=== PATIENT | female | born 1945 | race Caucasian/White ===

== ENCOUNTER 2017-01-25 06:58 | Emergency (ER) | payer MEDICARE ==
[2017-01-25] MEDS ORDERED: Ketorolac Tromethamine 30 MG/ML VIAL ONE (07:13)
[2017-01-25 07:32] LABS: #Lymphocytes 0.8 thou/uL (1.20-3.40); #Monocytes 0.3 thou/uL (0.11-0.59); #Neutrophils 3.6 thou/uL (1.40-6.50); %Basophils 0.5 % (0.0-1.0); %Eosinophils 0.5 % (0.0-10.0); %Monocytes 5.2 % (0.0-10.0); Hematocrit 38.8 % (36.0-47.0); Mean Platelet Volume 6.2 fL (7.4-10.4); Red Blood Cell (RBC) Count 3.97 mill/uL (4.20-5.40); White Blood Cell (WBC) Count 4.7 thou/uL (4.8-10.8)
[2017-01-25 07:50] LABS: ALT (SGPT) 24 U/L (8-55); AST (SGOT) 25 U/L (5-34); Alkaline Phosphatase 69 U/L (40-150); Anion Gap 11 mmol/L (10-20); BUN (Urea Nitrogen) 8 mg/dL (9.8-20.1); Bilirubin, Total 0.2 mg/dL (0.2-1.2); Calc. Creatinine Clearance 0 mL/min (70-130); Calcium 8.7 mg/dL (7.8-10.44); Carbon Dioxide 23 mmol/L (23-31); Chloride 100 mmol/L (98-107); Estimated GFR-MDRD 74; Globulin 2.8 g/dL (2.4-3.5); Protein, Total 6.4 g/dL (6.0-8.3)
[2017-01-25 08:34] LABS: Bilirubin Negative (Negative); Blood, Urine Trace (Negative); Glucose, Urine (Dipstick) Negative (Negative); Ketone, Urine Negative (Negative); Nitrite Negative (Negative); Protein, Urine (Dipstick) Negative (Neg-Trace); Urobilinogen 0.2 mg/dL (0.2-1.0)
[2017-01-25 08:36] LABS: Bacteria/HPF None Seen HPF (None Seen); Hyaline Casts/LPF 0-3 HYALINE CAST LPF (0-3 Hyaline); Squamous Epithelial 0-3 HPF (0-3); WBC/HPF 0-3 HPF (0-3)
--- NOTE | 2017-01-25 08:58 | RAD ---
PA AND LATERAL CHEST XRAY: DATE: 01/25/17. HISTORY: Malaise, fever, body aches, nonproductive cough and fever. COMPARISON: 02/21/13. FINDINGS: Cardiac silhouette and pulmonary vasculature are within normal limits. The lungs remain clear. Ther e is mild eventration of the anterior right hemidiaphragm. There has been no interval change from th e prior study. IMPRESSION: No acute cardiopulmonary process. POS: [facility]VIZ
== END 2017-01-25 08:55 | disposition home or self-care (01) ==
LOC: ERS 06:58
DX: J11.1 Influenza due to unidentified influenza virus with other respiratory manifestations (principal); I10 Essential (primary) hypertension; Z79.899 Other long term (current) drug therapy
CPT/HCPCS: 71020; 80053; 81003; 81015; 85025; 94640; 96361; 96374; J1885

== ENCOUNTER 2018-02-25 09:32 | Emergency (ER) | payer MEDICARE | END 2018-02-25 11:05 | disposition home or self-care (01) | LOC: ERS 09:32 | DX: M54.5 Low back pain (principal); E78.5 Hyperlipidemia, unspecified; F32.9 Major depressive disorder, single episode, unspecified; Z79.899 Other long term (current) drug therapy | CPT/HCPCS: 99283 ==

== ENCOUNTER 2018-04-06 15:18 | Outpatient (CLI) | payer MEDICARE | END 2018-04-06 15:19 | disposition home or self-care (01) | LOC: BICMAMMO 15:18 | PROVIDERS: ATTEND Obstetrics & Gynecology | DX: Z12.31 Encounter for screening mammogram for malignant neoplasm of breast (principal); R92.1 Mammographic calcification found on diagnostic imaging of breast; Z80.3 Family history of malignant neoplasm of breast | CPT/HCPCS: 77063; 77067 ==

== ENCOUNTER 2019-04-20 08:42 | Outpatient (CLI) | payer MEDICARE ==
--- NOTE | 2019-04-20 12:20 | NM ---
Radionucleotide stress and rest myocardial perfusion scan with CT attenuation correction and SPECT im aging Left ventricular wall motion evaluation and ejection fraction HISTORY: Chest pain. FINDINGS: Adenosine protocol. There is homogeneous uptake of radiotracer throughout the left ventricu lar myocardium. No focal perfusion defect or reversibility. QGS analysis of gated SPECT images shows no focal wall motion abnormalities. Ejection fraction calcul ated at 77%. IMPRESSION: Normal exam.
[2019-04-20] MEDS ORDERED: ADENOSINE 60 MG/20 ML VIAL ONE (15:25)
== END 2019-04-20 08:43 | disposition home or self-care (01) ==
LOC: NM 08:42
PROVIDERS: ATTEND Internal Medicine
DX: R07.9 Chest pain, unspecified (principal)
CPT/HCPCS: 78452; 93017; A9500; J0153

== ENCOUNTER 2019-05-10 11:47 | Emergency (ER) | payer MEDICARE | END 2019-05-10 14:30 | disposition home or self-care (01) | LOC: ERS 11:47 | DX: I10 Essential (primary) hypertension (principal); E78.5 Hyperlipidemia, unspecified; F32.9 Major depressive disorder, single episode, unspecified; Z87.891 Personal history of nicotine dependence; Z79.899 Other long term (current) drug therapy | CPT/HCPCS: 99283 ==

== ENCOUNTER 2019-07-20 12:14 | Emergency (ER) | payer MEDICARE ==
[2019-07-20] MEDS ORDERED: Lidocaine 4% Cream 5 GM TUBE w/ Tegaderm ONE (13:09)
== END 2019-07-20 15:22 | disposition home or self-care (01) ==
LOC: ERS 12:14
DX: N39.0 Urinary tract infection, site not specified (principal); R33.9 Retention of urine, unspecified; E78.5 Hyperlipidemia, unspecified; F32.9 Major depressive disorder, single episode, unspecified; Z87.891 Personal history of nicotine dependence; Z79.899 Other long term (current) drug therapy
CPT/HCPCS: 51702; 51798

== ENCOUNTER 2019-07-30 06:27 | Outpatient (CLI) | payer MEDICARE, OTHER ==
[2019-07-30 11:54] LABS: Hemoglobin 13.8 g/dL (12.0-16.0); Mean Corpuscular HGB CONC 33.7 g/dL (32.0-36.0); Mean Corpuscular Hemoglobin 33.1 pg (27.0-31.0); Mean Corpuscular Volume 98.2 fL (78.0-98.0); Mean Platelet Volume 6.7 fL (7.4-10.4); Platelet Count 357 thou/uL (130-400); RBC Distribution Width 11.3 % (11.5-14.5); Red Blood Cell (RBC) Count 4.18 mill/uL (4.20-5.40); White Blood Cell (WBC) Count 6.9 thou/uL (4.8-10.8)
[2019-07-30 12:12] LABS: Anion Gap 11 mmol/L (10-20); BUN (Urea Nitrogen) 20 mg/dL (9.8-20.1); Calc. Creatinine Clearance 0 mL/min (70-130); Calcium 9.3 mg/dL (7.8-10.44); Carbon Dioxide 27 mmol/L (23-31); Chloride 99 mmol/L (98-107); Estimated GFR-MDRD 73; Glucose 86 mg/dL (83-110); Potassium 4.3 mmol/L (3.5-5.1); Sodium 133 mmol/L (136-145)
[2019-07-30 17:52] LABS: SARS-CoV-2 MS2 Positive; SARS-CoV-2 N Gene Negative; SARS-CoV-2 S Gene Negative; SARS-CoV-2 orf1ab Negative
== END 2019-07-30 06:28 | disposition home or self-care (01) ==
LOC: LABBT 06:27
PROVIDERS: ATTEND Urology
DX: Z01.818 Encounter for other preprocedural examination (principal); Z11.59 Encounter for screening for other viral diseases; N35.92 Unspecified urethral stricture, female
CPT/HCPCS: 80048; 85027; 93005; U0003; 87635; 93010

== ENCOUNTER 2019-08-03 | Day surgery (SDC) | payer MEDICARE | END 2019-08-03 14:41 | disposition home or self-care (01) | PROC: 0T7D8ZZ Dilation of Urethra, Via Natural or Artificial Opening Endoscopic (ICD-10-PCS; principal; 2019-08-03) | DX: N35.92 Unspecified urethral stricture, female (principal); N32.89 Other specified disorders of bladder; N32.3 Diverticulum of bladder; I10 Essential (primary) hypertension; E78.00 Pure hypercholesterolemia, unspecified; K21.9 Gastro-esophageal reflux disease without esophagitis; F41.9 Anxiety disorder, unspecified; Z79.899 Other long term (current) drug therapy ==

== ENCOUNTER 2020-04-25 07:32 | Day surgery (SDC) | payer MEDICARE ==
[2020-04-24 09:59] VITALS: BMI 25.7
[2020-04-25] MEDS ORDERED: Bupivacaine 0.25% HCL 30 ML VIAL ONE (08:49)
[2020-04-25] MEDS ORDERED: Fentanyl 100 MCG/2 ML VIAL ONE (08:57)
[2020-04-25] MEDS ORDERED: Midazolam HCl 2 mg/2 ml Vial ONE (08:57)
[2020-04-25] MEDS ORDERED: PROPOFOL 200 MG/20 ML VIAL ONE (09:56)
[2020-04-25] MEDS ORDERED: Lidocaine 1% PF 5 ML VIAL ONE (09:56)
--- NOTE | 2020-04-25 11:03 | OP ---
DATE OF PROCEDURE: 04/25/2020 PREOPERATIVE DIAGNOSES: Malfunctioning InterStim, overactive bladder. POSTOPERATIVE DIAGNOSES: Malfunctioning InterStim, overactive bladder. PROCEDURE PERFORMED: Removal of InterStim pulse generator, removal of InterStim peripheral lead. ANESTHESIA: TIVA. COMPLICATIONS: None. BLOOD LOSS: Minimal. SPECIMENS: InterStim pulse generator and lead. DESCRIPTION OF PROCEDURE: After informed consent, the patient was taken to the operating room, transferred to the table under her own power. Anesthesia was established. A time-out was performed showing the correct patient, site, and procedure. She was prepped and draped in the prone position. I began by infiltrating around the incision scar over the battery with 0.25% Marcaine as well as over the small incision for the lead. I then used electrocautery to incise through the prior scar, which was carried down through David's onto the battery. The battery was delivered, and the peripheral lead dissected medially. I then made a small incision over the previous scar for the lead insertion. A right angle was used to identify the lead, which was brought up through this incision. The lead was cut, and the pulse generator passed off. The lead was then track down upon and removed in its entirety. It was inspected to ensure that there were no tines remaining. Both wounds were copiously irrigated. The pocket for the pulse generator was cauterized and then both incision sites were closed deep with 3-0 Vicryl and skin incisions closed with a running subcuticular 4-0 Monocryl suture. Both were dressed with Dermabond. She was then awoken from anesthesia, transferred back to her hospital bed, and taken to PACU in stable condition, where she will be discharged home upon recovery. Job ID: [id number]
== END 2020-04-25 10:23 | disposition home or self-care (01) ==
LOC: SDC 07:32
PROVIDERS: ATTEND Urology
PROC: 01PY0MZ Removal of Neurostimulator Lead from Peripheral Nerve, Open Approach (ICD-10-PCS; principal; 2020-04-25)
PROC: 0JPT0MZ Removal of Stimulator Generator from Trunk Subcutaneous Tissue and Fascia, Open Approach (ICD-10-PCS; 2020-04-25)
DX: T85.113A Breakdown (mechanical) of implanted electronic neurostimulator, generator, initial encounter (principal); N32.81 Overactive bladder; N35.82 Other urethral stricture, female; I10 Essential (primary) hypertension; E78.00 Pure hypercholesterolemia, unspecified; M19.90 Unspecified osteoarthritis, unspecified site; K21.9 Gastro-esophageal reflux disease without esophagitis; F41.9 Anxiety disorder, unspecified; Z79.899 Other long term (current) drug therapy
CPT/HCPCS: 88300; J0690; J2250; J2704; J3010; S0020

== ENCOUNTER 2020-12-28 17:33 | Inpatient (IN) | payer MEDICARE ==
[2020-12-28] MEDS ORDERED: Aspirin Chewable 81 MG TAB ONE (18:02)
[2020-12-28] MEDS ORDERED: Nitroglycerin 0.4 MG TAB 1 EACH ONE ×2 (18:02→18:25)
[2020-12-28 18:12] LABS: #Eosinphils 0.1 thou/uL (0.0-0.7); #Lymphocytes 2.3 thou/uL (1.20-3.40); #Monocytes 0.6 thou/uL (0.11-0.59); #Neutrophils 5.2 thou/uL (1.40-6.50); %Basophils 0.4 % (0.0-1.0); %Eosinophils 1.1 % (0.0-10.0); %Lymphocytes 27.8 % (21.0-51.0); %Monocytes 7.8 % (0.0-10.0); %Neutrophils 62.8 % (42.0-75.0); Hemoglobin 13.7 g/dL (12.0-16.0); Mean Corpuscular HGB CONC 34.5 g/dL (32.0-36.0); Mean Corpuscular Hemoglobin 33.8 pg (27.0-31.0); Mean Platelet Volume 6.6 fL (7.4-10.4); Platelet Count 392 thou/uL (130-400); RBC Distribution Width 10.9 % (11.5-14.5); Red Blood Cell (RBC) Count 4.04 mill/uL (4.20-5.40); White Blood Cell (WBC) Count 8.2 thou/uL (4.8-10.8)
[2020-12-28] MEDS ORDERED: Nitroglycerin 2% Ointment 1 INCH/1 GM Packet ONE (18:25)
[2020-12-28 18:42] LABS: ALT (SGPT) 26 U/L (8-55); AST (SGOT) 22 U/L (5-34); Albumin 4.1 g/dL (3.4-4.8); Alkaline Phosphatase 83 U/L (40-110); Anion Gap 16 mmol/L (10-20); BUN (Urea Nitrogen) 20 mg/dL (9.8-20.1); Bilirubin, Total 0.3 mg/dL (0.2-1.2); Calc. Creatinine Clearance 0 mL/min (70-130); Calcium 9.7 mg/dL (7.8-10.44); Carbon Dioxide 22 mmol/L (23-31); Chloride 101 mmol/L (98-107); Globulin 2.8 g/dL (2.4-3.5); Glucose 88 mg/dL (83-110); Lipase 41 U/L (8-78); Potassium 3.7 mmol/L (3.5-5.1); Protein, Total 6.9 g/dL (5.8-8.1); Sodium 135 mmol/L (136-145)
[2020-12-28] MEDS ORDERED: Morphine 4 MG/ML VIAL ONE (19:42)
[2020-12-28] MEDS ORDERED: Bisacodyl 5 MG TAB PO PRN (19:56)
[2020-12-28] MEDS ORDERED: Senokot S 8.6-50 MG TAB PO PRN (19:56)
[2020-12-28] MEDS ORDERED: Acetaminophen 325 MG TAB PO PRN (19:56)
[2020-12-28] MEDS ORDERED: Ondansetron PF 4 MG/2 ML Vial IVP PRN (19:56)
[2020-12-28] MEDS ORDERED: Enoxaparin Sodium 40 MG/0.4 ML SYRINGE SC SCH (20:00)
[2020-12-28] MEDS ORDERED: hydrALAZINE 20 MG/ML VIAL SLOW IVP PRN (20:06)
[2020-12-28] MEDS ORDERED: Morphine 4 MG/ML VIAL SLOW IVP PRN ×2 (20:06→20:11)
[2020-12-28] MEDS ORDERED: Famotidine/PF 20 mg/2ml Vial SLOW IVP SCH (21:00)
[2020-12-28 21:49] LABS: Troponin I 0.689 ng/mL (< 0.028)
[2020-12-28 22:06] VITALS: BMI 27.8
[2020-12-28] MEDS: Pramipexole Di-HCl 0.25 MG TAB PO SCH (22:13)
[2020-12-28] MEDS: Pantoprazole 40 MG GRANULES PACKET PO SCH (22:14)
[2020-12-28] MEDS ORDERED: Enoxaparin Sodium 30 MG/0.3 ML SYRINGE SC SCH (22:30)
[2020-12-28 22:37] LABS: Hemoglobin 12.1 g/dL (12.0-16.0); Platelet Count 317 thou/uL (130-400)
[2020-12-29 01:39] LABS: Troponin I 0.851 ng/mL (< 0.028)
[2020-12-29] MEDS ORDERED: clonazePAM 1 MG TAB PO SCH (02:00)
[2020-12-29] MEDS: Levothyroxine Sodium 100 MCG TAB PO SCH (05:46)
[2020-12-29] MEDS: Nitroglycerin 0.4 MG TAB (25 Tab Bottle) SL PRN ×2 (05:51→06:05)
[2020-12-29 06:05] LABS: #Basophils 0.1 thou/uL (0.0-0.2); #Eosinphils 0.1 thou/uL (0.0-0.7); #Lymphocytes 2.3 thou/uL (1.20-3.40); #Monocytes 0.5 thou/uL (0.11-0.59); #Neutrophils 4.1 thou/uL (1.40-6.50); %Basophils 1.1 % (0.0-1.0); %Eosinophils 1.2 % (0.0-10.0); %Lymphocytes 32.7 % (21.0-51.0); %Monocytes 7.2 % (0.0-10.0); %Neutrophils 57.7 % (42.0-75.0); Hemoglobin 12.7 g/dL (12.0-16.0); Mean Corpuscular HGB CONC 34.9 g/dL (32.0-36.0); Mean Corpuscular Hemoglobin 34.2 pg (27.0-31.0); Mean Platelet Volume 6.3 fL (7.4-10.4); Platelet Count 339 thou/uL (130-400); Red Blood Cell (RBC) Count 3.71 mill/uL (4.20-5.40); White Blood Cell (WBC) Count 7.2 thou/uL (4.8-10.8)
[2020-12-29 06:15] LABS: Hemoglobin A1c 5.2 % (4.0-6.0)
[2020-12-29 06:29] LABS: ALT (SGPT) 22 U/L (8-55); AST (SGOT) 19 U/L (5-34); Albumin 3.6 g/dL (3.4-4.8); Alkaline Phosphatase 75 U/L (40-110); Anion Gap 12 mmol/L (10-20); BUN (Urea Nitrogen) 19 mg/dL (9.8-20.1); Bilirubin, Total 0.3 mg/dL (0.2-1.2); Calc. Creatinine Clearance 69 mL/min (70-130); Calcium 9.3 mg/dL (7.8-10.44); Carbon Dioxide 25 mmol/L (23-31); Cardiac Risk 3.5 (Less than 4.5); Chloride 105 mmol/L (98-107); Cholesterol 163 mg/dl (< 200 Desired); Globulin 2.2 g/dL (2.4-3.5); Glucose 91 mg/dL (83-110); HDL Cholesterol 46 mg/dL (>60 Neg Risk); LDL Cholesterol, Calculated 93 mg/dL; Potassium 3.9 mmol/L (3.5-5.1); Protein, Total 5.8 g/dL (5.8-8.1); Sodium 138 mmol/L (136-145); Triglycerides 118 mg/dL (Less than 150)
[2020-12-29 06:42] LABS: Critical Call Chem Troponin I RESULT DECREASING; Troponin I 0.634 ng/mL (< 0.028)
[2020-12-29] MEDS: Pantoprazole 40 MG GRANULES PACKET PO SCH ×2 (08:10→20:36)
[2020-12-29] MEDS: Enoxaparin Sodium 80 MG/0.8 ML SYRINGE SC SCH ×2 (08:11→20:35)
[2020-12-29 08:54] LABS: Amphetamine Not Detected (NotDetected); Barbiturates Screen Not Detected (NotDetected); Benzodiazepine Screen Not Detected (NotDetected); Cocaine Metabolite Screen Not Detected (NotDetected); Methadone Not Detected (NotDetected); Methamphetamine Not Detected (NotDetected); Opiate Screen Detected (NotDetected); Oxycodone Screen Not Detected (NotDetected); Phencyclidine (PCP) Not Detected (NotDetected); THC/Cannabinoid Screen Detected (NotDetected); Tricyclic Screen Not Detected (NotDetected)
[2020-12-29 09:33] LABS: SARS-CoV-2 NAA Rapid Test Not Detected (NotDetected)
[2020-12-29] MEDS ORDERED: Metoprolol Tartrate 5 MG/5 ML VIAL IVP PRN (18:10)
[2020-12-29] MEDS: clonazePAM 1 MG TAB PO SCH (20:36)
[2020-12-29] MEDS: DULoxetine 60 MG CAP PO SCH (20:36)
[2020-12-29] MEDS: Atorvastatin Calcium 40 MG TAB PO SCH (20:36)
[2020-12-29] MEDS: Pramipexole Di-HCl 0.25 MG TAB PO SCH (20:36)
[2020-12-29] MEDS: Melatonin 3 MG TAB PO PRN (20:43)
[2020-12-29] MEDS: Metoprolol Tartrate 25 MG TAB PO SCH (20:46)
[2020-12-29] MEDS ORDERED: Enoxaparin Sodium 40 MG/0.4 ML SYRINGE SC SCH (21:00)
[2020-12-30] MEDS: Aspirin 325 mg Enteric Coated Tablet PO SCH (08:24)
[2020-12-30] MEDS: Pantoprazole 40 MG GRANULES PACKET PO SCH ×2 (08:25→20:28)
[2020-12-30] MEDS: Enoxaparin Sodium 80 MG/0.8 ML SYRINGE SC SCH ×2 (08:25→20:27)
[2020-12-30] MEDS: Metoprolol Tartrate 25 MG TAB PO SCH (08:25)
[2020-12-30] MEDS ORDERED: Communication Order-Pharmacy FS SCH (17:00)
[2020-12-30] MEDS: Atorvastatin Calcium 40 MG TAB PO SCH (20:28)
[2020-12-30] MEDS: DULoxetine 60 MG CAP PO SCH (20:28)
[2020-12-30] MEDS: Pramipexole Di-HCl 0.25 MG TAB PO SCH (20:28)
[2020-12-30] MEDS: Melatonin 3 MG TAB PO PRN (20:28)
[2020-12-30] MEDS: Nitroglycerin 2% Ointment 1 INCH/1 GM Packet TOP SCH (20:29)
[2020-12-30] MEDS: clonazePAM 1 MG TAB PO SCH (20:29)
[2020-12-31 05:26] LABS: #Basophils 0.1 thou/uL (0.0-0.2); #Eosinphils 0.2 thou/uL (0.0-0.7); #Lymphocytes 1.9 thou/uL (1.20-3.40); #Monocytes 0.7 thou/uL (0.11-0.59); #Neutrophils 4.6 thou/uL (1.40-6.50); %Basophils 0.7 % (0.0-1.0); %Eosinophils 2.2 % (0.0-10.0); %Lymphocytes 25.6 % (21.0-51.0); %Monocytes 9.2 % (0.0-10.0); %Neutrophils 62.4 % (42.0-75.0); Hemoglobin 12.8 g/dL (12.0-16.0); Mean Corpuscular HGB CONC 35.8 g/dL (32.0-36.0); Mean Corpuscular Hemoglobin 35.2 pg (27.0-31.0); Mean Corpuscular Volume 98.4 fL (78.0-98.0); Mean Platelet Volume 6.8 fL (7.4-10.4); Platelet Count 310 thou/uL (130-400); RBC Distribution Width 10.9 % (11.5-14.5); Red Blood Cell (RBC) Count 3.63 mill/uL (4.20-5.40); White Blood Cell (WBC) Count 7.4 thou/uL (4.8-10.8)
[2020-12-31 05:55] LABS: Anion Gap 10 mmol/L (10-20); BUN (Urea Nitrogen) 17 mg/dL (9.8-20.1); Calc. Creatinine Clearance 71 mL/min (70-130); Calcium 8.9 mg/dL (7.8-10.44); Carbon Dioxide 29 mmol/L (23-31); Chloride 102 mmol/L (98-107); Glucose 87 mg/dL (83-110); Potassium 4.4 mmol/L (3.5-5.1); Sodium 137 mmol/L (136-145)
[2020-12-31] MEDS: Levothyroxine Sodium 100 MCG TAB ONE ×2 (06:06→06:20)
[2020-12-31] MEDS: Levothyroxine Sodium 100 MCG TAB PO SCH (06:17)
[2020-12-31] MEDS: Pantoprazole 40 MG GRANULES PACKET PO SCH ×2 (08:38→20:31)
[2020-12-31] MEDS: Nitroglycerin 2% Ointment 1 INCH/1 GM Packet TOP SCH ×2 (08:38→20:31)
[2020-12-31] MEDS: Aspirin 325 mg Enteric Coated Tablet PO SCH (08:38)
[2020-12-31] MEDS: Enoxaparin Sodium 80 MG/0.8 ML SYRINGE SC SCH (08:38)
[2020-12-31] MEDS: clonazePAM 1 MG TAB PO SCH (20:28)
[2020-12-31] MEDS: DULoxetine 60 MG CAP PO SCH (20:28)
[2020-12-31] MEDS: Metoprolol Tartrate 25 MG TAB PO SCH (20:29)
[2020-12-31] MEDS: Atorvastatin Calcium 40 MG TAB PO SCH (20:31)
[2020-12-31] MEDS: Pramipexole Di-HCl 0.25 MG TAB PO SCH (20:31)
[2021-01-01] MEDS ORDERED: Sodium Chloride 0.9% 1,000 ML IV SCH ×2 (06:00→08:28)
[2021-01-01] MEDS ORDERED: Levothyroxine Sodium 88 MCG TAB PO SCH (06:00)
[2021-01-01] MEDS: Aspirin 325 mg Enteric Coated Tablet PO SCH (06:39)
[2021-01-01] MEDS: Metoprolol Tartrate 25 MG TAB PO SCH (06:39)
[2021-01-01] MEDS: Nitroglycerin 2% Ointment 1 INCH/1 GM Packet TOP SCH (06:40)
[2021-01-01] MEDS: Pantoprazole 40 MG GRANULES PACKET PO SCH (06:44)
[2021-01-01] MEDS ORDERED: Lidocaine 1% (PF) 30 ML VIAL ONE (07:08)
[2021-01-01] MEDS ORDERED: Fentanyl 100 MCG/2 ML VIAL ONE (07:08)
[2021-01-01] MEDS ORDERED: Midazolam HCl 2 mg/2 ml Vial ONE (07:08)
[2021-01-01] MEDS ORDERED: Heparin 10,000 UNITS/ 10 ML VIAL ONE (07:49)
[2021-01-01] MEDS ORDERED: Bivalirudin 250 MG VIAL ONE (07:50)
[2021-01-01] MEDS ORDERED: Nitroglycerin 100MG/250ML BOT 0 ML ONE (08:04)
[2021-01-01] MEDS ORDERED: Acetaminophen 325 MG TAB ONE (08:48)
[2021-01-01] MEDS ORDERED: Iopamidol 370 76% 50 ML VIAL FS ONE (09:15)
[2021-01-01] MEDS ORDERED: Iopamidol 370 76% 100 ML VIAL ONE (09:15)
[2021-01-01 15:53] VITALS: BP 124/61; TEMP 97.6
[2021-01-02] MEDS ORDERED: Aspirin 81 mg Enteric Coated Tablet PO SCH (09:00)
== END 2021-01-01 19:17 | disposition home or self-care (01) | DRG 282 ==
LOC: ERS 17:33 → 2SW 19:33 → OBSVTOIN 12-29 15:46 → 2SW 12-30 10:04
PROVIDERS: ADMIT Student in an Organized Health Care Education/Training Program; ATTEND Internal Medicine
PROC: 4A023N7 Measurement of Cardiac Sampling and Pressure, Left Heart, Percutaneous Approach (ICD-10-PCS; principal; 2021-01-01)
PROC: B2111ZZ Fluoroscopy of Multiple Coronary Arteries using Low Osmolar Contrast (ICD-10-PCS; 2021-01-01)
PROC: B2151ZZ Fluoroscopy of Left Heart using Low Osmolar Contrast (ICD-10-PCS; 2021-01-01)
PROC: 4A033BC Measurement of Arterial Pressure, Coronary, Percutaneous Approach (ICD-10-PCS; 2021-01-01)
DX: I21.4 Non-ST elevation (NSTEMI) myocardial infarction (principal); Z20.822 Contact with and (suspected) exposure to COVID-19; R33.9 Retention of urine, unspecified; Z91.048 Other nonmedicinal substance allergy status; Z79.890 Hormone replacement therapy; Z79.899 Other long term (current) drug therapy; Z87.891 Personal history of nicotine dependence; Z82.49 Family history of ischemic heart disease and other diseases of the circulatory system
CPT/HCPCS: 36415; 71045; 80048; 80053; 80061; 80306; 83036; 83690; 83735; 84439; 84443; 84481; 84484; 85025; 85347; 93005; 93010; 93306; 93458; 93571; 94760; 96372; 96374; 96376; 99152; 99153; C1769; G0378; J0153; J0583; J1644; J1650; J2001; J2250; J2270; J3010; J7050; Q9967; U0002